=== PATIENT | female | born 1985 | race Caucasian/White ===

== ENCOUNTER 2025-03-21 13:59 | Emergency (ER) | payer MEDICAID ==
[~2025-03-21] VITALS: Ht 160 cm; Wt 79.0 kg
[2025-03-21 14:02] VITALS: O2SAT 98
[2025-03-21 14:45] VITALS: BP 102/54; PULSE 67; RESP 16; TEMP 36.7; O2SAT 100
== END 2025-03-21 14:45 | disposition home or self-care (01) ==
LOC: ER 13:59
DX: T41.0X1A Poisoning by inhaled anesthetics, accidental (unintentional), initial encounter (principal); Y92.89 Other specified places as the place of occurrence of the external cause
CPT/HCPCS: 99283

== ENCOUNTER 2025-04-15 16:22 | Emergency (ER) | payer MEDICAID ==
[~2025-04-15] VITALS: Ht 157.5 cm; Wt 73.0 kg
[2025-04-15 16:36] VITALS: BP 127/69; TEMP 37.1; O2SAT 99
[2025-04-15 16:53] VITALS: PULSE 86; RESP 18; O2SAT 99
== END 2025-04-15 19:34 | disposition home or self-care (01) ==
LOC: ER 16:22
DX: Z00.00 Encounter for general adult medical examination without abnormal findings (principal)
CPT/HCPCS: 99282

== ENCOUNTER 2025-04-20 17:32 | Emergency (ER) | payer MEDICAID ==
[~2025-04-20] VITALS: Ht 157.5 cm; Wt 77.0 kg
[2025-04-20 17:47] VITALS: O2SAT 73
[2025-04-20 20:01] LABS: HEMATOCRIT. 26.1 % (36.0-48.0); HEMOGLOBIN. 8.1 g/dL (12.0-16.0); MEAN PLATELET VOLUME 7.4 fl (7.4-10.4); PLATELET 310 x1000/uL (130-400); RED BLOOD CELL COUNT 3.20 mill/uL (4.2-5.4); RED CELL DISTRIBUTION WIDTH 22.8 % (11.6-14.6)
[2025-04-20 20:13] LABS: CREATININE 0.8 mg/dL (0.6-1.0); UREA NITROGEN BLOOD 17 mg/dL (9-23)
[2025-04-20 20:14] LABS: HCG SCREEN NEGATIVE
[2025-04-20 20:15] LABS: ASPARTATE AMINOTRANSFERASE 15 IU/L (<34); BILIRUBIN DIRECT < 0.1 mg/dL (<=3.0)
[2025-04-20 20:16] LABS: BILIRUBIN TOTAL 0.2 mg/dL (0.1-1.0); PROTEIN TOTAL 6.5 g/dL (6.0-8.3)
[2025-04-20 20:23] LABS: CLARITY URINE CLOUDY (CLEAR); COLOR URINE ORANGE (YELLOW); GLUCOSE URINE NEGATIVE (NEGATIVE); KETONES URINE NEGATIVE (NEGATIVE); LEUKOCYTE ESTERASE URINE TRACE (NEGATIVE); NITRITE URINE POSITIVE (NEGATIVE); OCCULT BLOOD URINE 3+ (NEGATIVE); PH URINE 6.5 (4.5-8.0); PROTEIN URINE TRACE (NEGATIVE); SPECIFIC GRAVITY URINE 1.022 (1.005-1.030); UROBILINOGEN URINE 0.2 E.U./dL (0.2-1.0)
[2025-04-20 20:24] LABS: EOSINOPHILS % MANUAL 5.0 % (0.0-5.0); LYMPHOCYTES % MANUAL 36.0 % (20.0-60.0); MONOCYTES % MANUAL 12.0 % (2.0-8.0); NEUTROPHILS % MANUAL 47.0 % (45.0-75.0); PLATELET ESTIMATE NORMAL
[2025-04-20 20:48] LABS: SQUAMOUS EPITHELIAL CELL URINE 3+ /lpf (RARE/1+)
[2025-04-20 20:50] LABS: BACTERIA URINE 3+; RBC URINE 25-50 /hpf (0-2); WBC URINE 25-50 /hpf (0-2)
[2025-04-20] MEDS ORDERED: DOCU100T MT (21:22)
[2025-04-20] MEDS ORDERED: FERR325T6 MT (21:22)
[2025-04-20] MEDS ORDERED: NITR100C MT (21:22)
[2025-04-20 22:11] VITALS: BP 97/50; PULSE 61; RESP 15; TEMP 36.7; O2SAT 99
== END 2025-04-20 22:19 | disposition home or self-care (01) ==
LOC: ER 17:32
DX: R60.9 Edema, unspecified (principal); R20.2 Paresthesia of skin; N39.0 Urinary tract infection, site not specified; Z79.899 Other long term (current) drug therapy
CPT/HCPCS: 99283; 80076; 80048; 81003; 84703; 83690; 83735; 85025; 87086; 87186; 87077; 36415; A6449